=== PATIENT | male | born 1965 | race Caucasian/White ===

== ENCOUNTER → 2022-04-06 10:50 | Outpatient (CLI) | payer OTHER, SELFPAY ==
[2022-04-06 13:36] LABS: COVID19 -Nasal RAPID Negative (Negative)
== END ==
PROVIDERS: PCP Family Medicine; Visit Provider Surgery
DX: Z01.812 Encounter for preprocedural laboratory examination (principal); Z20.822 Contact with and (suspected) exposure to COVID-19
CPT/HCPCS: 87635; C9803

== ENCOUNTER 2022-04-07 10:48 | Day surgery (SDC) | payer OTHER, SELFPAY ==
--- NOTE | 2022-04-07 | PATH_ITS ---
[facility] Accession Number: [id number] . 01 Material submitted: . PART A: colon - ASCENDING COLON POLYP PART B: colon - TRANSVERSE COLON POLYP . 01 Clinical history: . [facility] FOR MALIGNANT NEOPLASM . 01 Diagnosis: A. Ascending Colon, Polyp, Biopsy: Sessile serrated adenoma. . B. Transverse Colon, Polyp, Biopsy: Sessile serrated adenoma. MRV 04/13/2022 1328 Local . 01 Electronically signed: . Daniela Fermin MD, Pathologist NPI- [id number] . 01 Gross description: . Part A: ASCENDING COLON POLYP: Received in formalin are 2 fragment(s) of rahman, soft tissue measuring 0.3 x 0.2 x 0.2 cm to 0.3 x 0.2 x 0.2 cm submitted entirely in 1 cassette(s) Part B: TRANSVERSE COLON POLYP: Received in formalin is 1 fragment(s) of rahman, soft tissue measuring 1.0 x 0.3 x 0.2 cm submitted entirely in 1 cassette(s) /CPE 04/08/2022 0624 Local . 01 Pathologist provided ICD-10: D12.2, D12.3 . 01 CPT . 093846, 072513 Specimen Comment: A courtesy copy of this report has been sent to [phone] Performed at: 01 [facility] [address] [place] [address], [place], [place] [id number] MD Jeremy Joe MD Phone: [phone]
[2022-04-07 11:17] VITALS: BP 117/84; PULSE 78; RESP 20; TEMP 36.4; O2SAT 100
[2022-04-07] MEDS: LACTATED RINGERS 1,000 ML 84 ML IV (11:17)
[2022-04-07 11:18] VITALS: BMI 25.0
--- NOTE | 2022-04-07 11:43 | PM.HP.1 ---
History of Present Illness History of Present Illness Date Patient Seen: 04/07/22 Time Patient Seen: 11:43 Chief complaint: SD Narrative: Cole is a 57-year-old man who had a colonoscopy about 5 years ago at [facility]. He was told he had polyps and was instructed to have his next colonoscopy 2 years after that but he did not follow up because of the pandemic. Has no known family history of colon cancer. Patient History Family & Social History Social History: household members spouse Tobacco & Substance use: Smoking Status Current every day smoker Smoking packs per day 1 alcohol intake current alcohol intake frequency other Substance Use Type does not use Meds Home Medications and Allergies Home Medications Medication Instructions Recorded Confirmed Type aspirin 81 mg DAILY 04/07/22 04/07/22 History cyclobenzaprine 10 mg tablet 10 tab DAILY 04/07/22 04/07/22 History latanoprost 0.005 % eye drops 1 drp DAILY 04/07/22 04/07/22 History losartan 25 mg tablet 1 tab 2XD 04/07/22 04/07/22 History multivitamin 1 tab DAILY 04/07/22 04/07/22 History propranolol 120 mg capsule,24 1 cap PO DAILY 04/07/22 04/07/22 History hr,extended release Allergies Allergy/AdvReac Type Severity Reaction Status Date / Time cephalexin Allergy Severe Anaphylaxis Verified 04/07/22 11:11 Sulfa (Sulfonamide Allergy Intermediate Rash Verified 04/07/22 11:11 Antibiotics) amoxicillin Allergy Unknown ITCHING Verified 04/07/22 11:11 Exam Vital Signs (past 8 hours): - 04/07/22 11:17 Temperature 97.6 F Pulse Rate 78 Respiratory Rate 20 Blood Pressure 117/84 Pulse Oximetry 100 Oxygen Delivery Method Room Air Oxygen Delivery Method Room Air Const General: healthy appearing Resp Effort & Inspection: normal respiratory effort Assessment & Plan Assessment and plan (1) History of colon polyps: Status: Acute Plan We reviewed the risks and benefits of colonoscopy with sedation and he would like to proceed. Time Spent With Patient Critical Care time: I spent a total of [] minutes of critical care time on this patient's care today; this time is exclusive of procedural time.
[2022-04-07] MEDS: fentaNYL 250 MCG/5 ML INJ 150 MCG IV (13:15)
[2022-04-07] MEDS: MIDAZOLAM 5 MG/5 ML VIAL 9 MG IV (13:15)
--- NOTE | 2022-04-07 13:16 | PM.OP.COLON ---
Operative Date/Time/Diagnoses Date of procedure: 04/07/22 Time of procedure: 13:17 Pre-op diagnosis: History of polyps Post-op diagnosis: same Procedure & Clinicians Study performed: Colonoscopy Same procedure as scheduled: Yes Surgeon: Blu Meadows Procedure Notes Procedure in detail: Surgeon: Blu Meadows MD Procedure: The patient was brought to the endoscopy suite, placed in left lateral decubitus position. The patient was connected to monitoring devices. A time-out was performed. Sedation was administered. Once the patient was adequately sedated, a digital rectal exam was performed and was normal. The scope was then inserted and advanced to the cecum where the appendiceal orifice was identified and photographed. The scope was then slowly withdrawn over greater than 6 minutes. The mucosa was thoroughly inspected. There was a 5 mm polyp in the ascending colon removed with Jumbo forceps. There was a 8 mm polyp in proximal transverse colon removed with cold snare. The scope was retroflexed in the rectum. There were no abnormalities noted. The scope was straightened and removed. The patient was awakened and brought to recovery. Versed: 9 mg Fentanyl: 150 mcg EBL: 5 mL Findings: 8 mm polyp in proximal transverse colon and 5 mm polyp in the ascending colon. Scope withdrawal time: 14 Sedation minutes: 38 Post-procedure Recommendations: Will call with biopsy results Disposition: PACU
[2022-04-07 13:21] VITALS: BP 115/85; PULSE 83; RESP 20; TEMP 36.8; O2SAT 98
[2022-04-07 13:26] VITALS: BP 98/48; PULSE 86; RESP 16; O2SAT 98
[2022-04-07 13:39] VITALS: BP 120/70; PULSE 78; RESP 16; TEMP 36.8; O2SAT 98
== END 2022-04-07 13:50 | disposition home or self-care (01) ==
PROVIDERS: PCP Family Medicine; Referring Provider Surgery; Visit Provider Surgery
PROC: 0DJD8ZZ Inspection of Lower Intestinal Tract, Via Natural or Artificial Opening Endoscopic (ICD-10-PCS; CPT 45378; principal; 2022-04-07 11:45)
DX: Z12.11 Encounter for screening for malignant neoplasm of colon (principal); Z86.010 Personal history of colon polyps; F17.210 Nicotine dependence, cigarettes, uncomplicated; D12.2 Benign neoplasm of ascending colon; D12.3 Benign neoplasm of transverse colon
CPT/HCPCS: 45385; 45380; 99152; 99153; J2250; J3010

== ENCOUNTER 2025-04-16 10:08 | Emergency (ER) | payer OTHER, SELFPAY ==
[2025-04-16] VITALS (14 sets, daily range): BP systolic 113–139; BP diastolic 63–81; PULSE 60–79; RESP 14; TEMP 36.1; O2SAT 94–100
--- NOTE | 2025-04-16 | DI.RAD.S_ITS ---
PROCEDURE: XR CHEST 1V INDICATIONS: fall hit head TECHNIQUE: One view of the chest was acquired. COMPARISON: None. FINDINGS: Surgical changes and devices: Sternotomy wires and prosthetic heart valve are present. Lungs and pleura: Lungs are clear. No pleural effusions or pneumothorax. Mediastinum: Mediastinal contours appear normal. Heart size is normal. Bones and chest wall: No definite displaced rib fracture. No suspicious bony lesions. Overlying soft tissues appear unremarkable. IMPRESSION: No acute cardiopulmonary abnormality is seen. Approved by: Alcon Curz M.D. on 04/16/2025 at 11:21
--- NOTE | 2025-04-16 10:35 | DI.CT.S_ITS ---
PROCEDURE: CT HEAD/BRAIN WO CON INDICATIONS: fall on coumadin TECHNIQUE: Noncontrast 4.5 mm thick angled axial sections acquired from the foramen magnum to the vertex, with coronal and sagittal reformats. For radiation dose reduction, the following was used: automated exposure control, adjustment of mA and/or kV according to patient size. COMPARISON: None. FINDINGS: Image quality: Diagnostic. CSF spaces: Basal cisterns are patent. No extra-axial fluid collections. The ventricles are symmetric in size and shape. Brain: No acute intracranial hemorrhage or mass effect. There is cerebral volume loss, with resultant ventricular and sulcal prominence. There are periventricular and deep white matter chronic small vessel ischemic changes. There is intracranial internal carotid artery atherosclerosis. Skull and face: Calvarium and visualized facial bones appear intact, without suspicious lesions. Sinuses: Mild mucosal thickening in the maxillary sinuses. Visualized sinuses and mastoids are otherwise clear. IMPRESSION: No acute intracranial pathology. Approved by: Alcon Cruz M.D. on 04/16/2025 at 11:10
--- NOTE | 2025-04-16 10:44 | EKG_ITS ---
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
--- NOTE | 2025-04-16 10:44 | PC.NURSE ---
reports syncopal episode in bathroom today after seeing [facility] this morning and having his INR checked which was 2.4. takes warfarin for valve replacement. reports LOC maybe a second or two and hit head on little dresser inside bathroom. 2cm LAC to top L of head above forehead. AAOx3. ambulatory. No focal deficits. denies pain. wound irrigated for potential staple placement.
[2025-04-16] MEDS: TET,DIPH,PERTUSS(ACELL),VAC/PF 0.5 ML SYRINGE IM (10:49)
--- NOTE | 2025-04-16 11:13 | DI.RAD.S_ITS ---
PROCEDURE: XR CHEST 1V INDICATIONS: Chest Pain TECHNIQUE: One view of the chest was acquired. COMPARISON: [facility], CR, XR CHEST 1V, 04/16/2025, 10:22. FINDINGS: Surgical changes and devices: Sternotomy wires and prosthetic heart valve are present. Lungs and pleura: Lungs are clear. No pleural effusions or pneumothorax. Mediastinum: Mediastinal contours appear normal. Heart size is normal. Bones and chest wall: No suspicious bony lesions. Overlying soft tissues appear unremarkable. IMPRESSION: No acute cardiopulmonary abnormality is seen. No significant interval change. Approved by: Alcon Cruz M.D. on 04/16/2025 at 11:41
[2025-04-16 11:21] LABS: Add Manual Diff / Slide Review NO; Hematocrit 46.6 % (41-53); Hemoglobin 15.8 g/dL (13.5-17.5); Lymphocytes Absolute Auto 1200 /uL (1100-4500); Mean Corpuscular HGB Conc 34.0 % (30-36); Mean Corpuscular Hemoglobin 32.5 PG (26-34); Mean Corpuscular Volume 95.6 fL (80-100); Platelet Count 173 X10^3/uL (150-400)
--- NOTE | 2025-04-16 11:21 | ED.DIZZY ---
HPI - Dizziness General Chief Complaint: Syncope Stated Complaint: Blood Pressure Loss, Fell, Stitches Time Seen by Provider: 04/16/25 10:09 Source: patient Mode of arrival: Ambulatory History of Present Illness HPI Narrative: 60-year-old gentleman history of valve replacement on Coumadin fell today as he got dizzy and lightheaded hitting his head against dresser with + LOC. Patient has a headache right now but denies dizziness, chest pain, blurred vision, difficulty speaking, swallowing, weakness in the arms and legs, shortness of breath, dyspnea on exertion. Other than what is stated 14 point review of system is negative. Related Data Home Medications ?Medication ?Instructions ?Recorded ?Confirmed aspirin 81 mg DAILY 04/07/22 04/07/22 cyclobenzaprine 10 mg tablet 10 tab DAILY 04/07/22 04/07/22 latanoprost 0.005 % eye drops 1 drp DAILY 04/07/22 04/07/22 losartan 25 mg tablet 1 tab 2XD 04/07/22 04/07/22 multivitamin 1 tab DAILY 04/07/22 04/07/22 propranolol 120 mg capsule,24 1 cap PO DAILY 04/07/22 04/07/22 hr,extended release Allergies Allergy/AdvReac Type Severity Reaction Status Date / Time cephalexin Allergy Severe Anaphylaxis Verified 04/16/25 10:22 Sulfa (Sulfonamide Allergy Intermediate Rash Verified 04/16/25 10:22 Antibiotics) amoxicillin Allergy Unknown ITCHING Verified 04/16/25 10:22 Review of Systems Review of Systems ROS Unobtainable: All systems reviewed & are unremarkable except as noted in HPI and below Patient History Social History household members: spouse Smoking Status: Unknown if ever smoked alcohol intake: current Smoking Status: Unknown if ever smoked alcohol intake frequency: other Exam Narrative Exam Narrative: GENERAL: [60] year old patient appears stated age. Well-developed patient, in mild distress. HEAD: Atraumatic. Normocephalic. EYES: Pupils equal round and reactive. Extraocular motions intact. No scleral icterus. No injection or drainage. ENT: Nose without bleeding, purulent drainage. Throat without erythema, tonsillar hypertrophy or exudate. Airway patent. NECK: Trachea midline. Non tender CARDIOVASCULAR: Regular rate and rhythm without murmurs, gallops, or rubs. RESPIRATORY: Clear to auscultation. Breath sounds equal bilaterally. No wheezes, rales, or rhonchi. GASTROINTESTINAL: Abdomen soft, non-tender, nondistended. EXTREMITIES: No edema or joint tenderness. BACK: Nontender without deformity or crepitance. No flank tenderness. NEURO: AOx3. GCS 15 nonfocal neuro exam 5/5 upper and lower extremity a pronator drift, [id number] opposite ozxa-mm-[id number] rapid alternating movement all intact SKIN: No rash or erythema of visible areas Initial Vital Signs Initial Vital Signs: Vital Signs Temperature 97.0 F L 04/16/25 10:22 Pulse Rate 69 04/16/25 10:22 Respiratory Rate 14 04/16/25 10:22 Blood Pressure 129/81 04/16/25 10:22 Pulse Oximetry 98 04/16/25 10:22 Oxygen Delivery Method Room Air 04/16/25 10:22 Procedures Laceration Repair Laceration 1: Time of procedure: 11:40 Site: scalp Size (cm): 3.0 Description: linear Depth: simple, single layer Local Anesthetic: lidocaine 1% and with epi Amount of anesthesia used (mL): 2 Number of sutures: 2 Course Orders Ordered: ED Orders 04/16/25 10:30 Complete Blood Count AUTO DIFF Stat Comprehensive Metabolic Panel Stat Lipase Stat Magnesium Stat NT-proBNP (BNP-Adult 18+) Stat PTT Partial Thromboplastin [place] Stat Prothrombin Time INR Stat Troponin & CK Cardiac Panel Stat 04/16/25 10:35 CT head/brain wo con Stat 04/16/25 11:13 XR chest 1V Stat EKG-12 Lead Stat 04/16/25 12:20 CT abdomen pelvis w con Stat Discontinued Medications Diphtheria/Tetanus/Acell Pertussis (Tet,Diph,Pertuss(Acell),Vac/Pf 0.5 Ml Syringe) 0.5 ml IM .ONCE ONE Stop: 04/16/25 10:47 Last Admin: 04/16/25 10:49 Dose: 0.5 ml Documented By: CTS Sodium Chloride (Normal Saline 0.9%) 1,000 mls @ 1,000 mls/hr IV BOLUS ONE Stop: 04/16/25 13:07 Last Infusion: 04/16/25 14:20 Dose: Infused Documented By: DKSkye Admin: 04/16/25 12:09 Dose: 1,000 mls/hr Documented By: CTS Lidocaine/Epinephrine (Lidocaine 1% W/Epi 10ml) 4 ml INJ INTRA-OP ONE Stop: 04/16/25 11:33 Last Admin: 04/16/25 11:39 Dose: 4 ml Documented By: ADDIE Vital Signs Vital signs: Vital Signs - 8 hr 04/16/25 10:22 04/16/25 10:48 04/16/25 10:48 Temperature 97.0 F L Pulse Rate 69 66 Pulse Rate [Orthostatic Lying] Pulse Rate [Orthostatic Sitting] Pulse Rate [Orthostatic Standing] Respiratory Rate 14 Blood Pressure 129/81 128/69 Blood Pressure [Orthostatic Lying] Blood Pressure [Orthostatic Sitting] Blood Pressure [Orthostatic Standing] Pulse Oximetry 98 98 Oxygen Delivery Method Room Air 04/16/25 11:00 04/16/25 11:00 04/16/25 11:30 Temperature Pulse Rate 68 66 Pulse Rate [Orthostatic Lying] Pulse Rate [Orthostatic Sitting] Pulse Rate [Orthostatic Standing] Respiratory Rate 14 Blood Pressure 116/67 Blood Pressure [Orthostatic Lying] Blood Pressure [Orthostatic Sitting] Blood Pressure [Orthostatic Standing] Pulse Oximetry 95 94 Oxygen Delivery Method 04/16/25 11:30 04/16/25 11:58 04/16/25 11:58 Temperature Pulse Rate 62 Pulse Rate [Orthostatic Lying] Pulse Rate [Orthostatic Sitting] Pulse Rate [Orthostatic Standing] Respiratory Rate Blood Pressure 117/67 120/71 Blood Pressure [Orthostatic Lying] Blood Pressure [Orthostatic Sitting] Blood Pressure [Orthostatic Standing] Pulse Oximetry 97 Oxygen Delivery Method 04/16/25 12:00 04/16/25 12:00 04/16/25 12:01 Temperature Pulse Rate 66 79 Pulse Rate [Orthostatic Lying] Pulse Rate [Orthostatic Sitting] Pulse Rate [Orthostatic Standing] Respiratory Rate Blood Pressure 139/75 Blood Pressure [Orthostatic Lying] Blood Pressure [Orthostatic Sitting] Blood Pressure [Orthostatic Standing] Pulse Oximetry 98 98 Oxygen Delivery Method 04/16/25 12:01 04/16/25 12:02 04/16/25 12:02 Temperature Pulse Rate 65 Pulse Rate [Orthostatic Lying] 63 Pulse Rate [Orthostatic Sitting] 68 Pulse Rate [Orthostatic Standing] 78 Respiratory Rate Blood Pressure 132/73 Blood Pressure [Orthostatic Lying] 120/71 Blood Pressure [Orthostatic Sitting] 139/75 Blood Pressure [Orthostatic Standing] 132/73 Pulse Oximetry 99 Oxygen Delivery Method 04/16/25 12:02 04/16/25 12:31 04/16/25 12:31 Temperature Pulse Rate 62 Pulse Rate [Orthostatic Lying] Pulse Rate [Orthostatic Sitting] Pulse Rate [Orthostatic Standing] Respiratory Rate Blood Pressure 130/65 132/63 Blood Pressure [Orthostatic Lying] Blood Pressure [Orthostatic Sitting] Blood Pressure [Orthostatic Standing] Pulse Oximetry 99 Oxygen Delivery Method MDM - Dizziness Lab Data 04/16/25 10:30 04/16/25 10:30 Labs: Lab Results 04/16/25 Range/Units 10:30 WBC 11.4 H (4.5-11.0) X10^3/uL RBC 4.87 (4.5-5.9) X10^6/uL Hgb 15.8 (13.5-17.5) g/dL Hct 46.6 (41-53) % MCV 95.6 (80-100) fL MCH 32.5 (26-34) PG MCHC 34.0 (30-36) % RDW 13.4 (11.6-14.8) % Plt Count 173 (150-400) X10^3/uL Neut % (Auto) 81.3 H (50-75) % Lymph % (Auto) 10.8 L (25-40) % Braxton % (Auto) 7.3 (3-14) % Eos % (Auto) 0.3 L (2-4) % Baso % (Auto) 0.3 (0-2) % Neut # (Auto) 9200 H (9004-9228) /uL Lymph # (Auto) 1200 (2426-1991) /uL Braxton # (Auto) 800 (0-900) /uL Eos # (Auto) 0 (0-450) /uL Baso # (Auto) 0 (0-100) /uL PT 27.6 H (9.4-12.5) SECONDS INR 2.5 H (0.9-1.3) APTT 33 (25.1-36.5) SECONDS Sodium 137 (137-145) mmol/L Potassium 4.2 (3.4-5.1) mmol/L Chloride 103 (98-107) mmol/L Carbon Dioxide 25 (22-32) mmol/L BUN 11 (9-20) mg/dL Creatinine 0.89 (0.66-1.25) mg/dL Estimated GFR > 60 (>60) mL/min BUN/Creatinine Ratio 12.4 (6-22) Glucose 116 H (70-99) mg/dL Calcium 9.6 (8.4-10.2) mg/dL Magnesium 1.9 (1.6-2.3) mg/dL Total Bilirubin 0.9 (0.2-1.3) mg/dL AST 67 H (17-59) IU/L ALT 69 H (<50) IU/L Alkaline Phosphatase 55 (38-126) U/L Total Creatine Kinase 141 (55-170) U/L Troponin I < 0.012 (0.01-0.034) ng/mL NT-Pro-B Natriuret Pep 67 (<125) pg/mL Total Protein 7.8 (6.3-8.2) g/dL Albumin 5.0 (3.5-5.0) g/dL Globulin 2.8 (1.7-4.1) g/dL Albumin/Globulin Ratio 1.8 (1.0-2.8) Lipase 942 H (23-300) U/L Imaging Data CT scan - head: Radiologist's Impression: [place] [address] CT Scan Report Signed Patient: Cole Collado MR#: [id number] : 1965 Acct:[id number] Age/Sex: 60 / M Date of Service: 04/16/25 Loc: ED Accession Number: [id number] Procedure: CT head/brain wo con Ordering Provider: Ahmet Galindo D.O. PROCEDURE: CT HEAD/BRAIN WO CON INDICATIONS: fall on coumadin TECHNIQUE: Noncontrast 4.5 mm thick angled axial sections acquired from the foramen magnum to the vertex, with coronal and sagittal reformats. For radiation dose reduction, the following was used: automated exposure control, adjustment of mA and/or kV according to patient size. COMPARISON: None. FINDINGS: Image quality: Diagnostic. CSF spaces: Basal cisterns are patent. No extra-axial fluid collections. The ventricles are symmetric in size and shape. Brain: No acute intracranial hemorrhage or mass effect. There is cerebral volume loss, with resultant ventricular and sulcal prominence. There are periventricular and deep white matter chronic small vessel ischemic changes. There is intracranial internal carotid artery atherosclerosis. Skull and face: Calvarium and visualized facial bones appear intact, without suspicious lesions. Sinuses: Mild mucosal thickening in the maxillary sinuses. Visualized sinuses and mastoids are otherwise clear. IMPRESSION: No acute intracranial pathology. CT scan - abdomen/pelvis: Radiologist's Impression: [address] [address] [address] Scan Report Signed Patient: Cole Collado MR#: [id number] : 1965 Acct:[id number] Age/Sex: 60 / M Date of Service: 04/16/25 Loc: ED Accession Number: [id number] Procedure: CT abdomen pelvis w con Ordering Provider: Ahmet Galindo D.O. PROCEDURE: CT ABDOMEN PELVIS W CON INDICATIONS: elevated lipase TECHNIQUE: After the administration of intravenous contrast, axial sections acquired from the lung bases to the pubic symphysis. Coronal and sagittal reformats were performed. For radiation dose reduction, the following was used: automated exposure control, adjustment of mA and/or kV according to patient size. COMPARISON: None. FINDINGS: Image quality: Diagnostic. Lower Chest: No significant findings. ABDOMEN: Liver: No solid mass. Gallbladder: No radiopaque gallstones or wall thickening. Biliary ducts: No biliary dilation. Pancreas: No ductal dilation. Spleen: Size is within normal limits. Adrenal Glands: No adrenal nodules. Kidneys and Ureters: No hydronephrosis. No solid mass. No complex renal cystic lesion which requires follow up. Stomach and Bowel: Normal appendix. Moderate colonic stool. Small bowel loops are nondilated. Peritoneum: No abnormal intraperitoneal fluid. No free air. Ventral Wall: No significant ventral hernia. Abdominal Nodes: No retroperitoneal or mesenteric adenopathy by size criteria. Vessels: Aorta and inferior vena cava are normal in size. PELVIS: Pelvic Organs: Unremarkable. Bladder: No bladder wall thickening, accounting for underdistention. Pelvic Nodes: No enlarged lymph nodes. Miscellaneous: No inguinal hernias are seen. Bones: No aggressive osseous abnormality. IMPRESSION: No acute abnormality identified in the abdomen or pelvis. No significant peripancreatic edema or ductal dilatation. Pancreas enhances normally. MDM Narrative Medical decision making narrative: All lab work, vital signs, nurse triage note, medication list, previous ER visits, and all imaging studies reviewed. CT head and chest X showed no acute process. CT abdomen and pelvis showed no acute process either including no significant peripancreatic edema or ductal dilatation. WBC 11.4 INR 2.5 glucose 116 troponin normal BNP 66 lipase 942. Differential diagnosis includes subarachnoid epidural subdural hemorrhage pneumothorax or fracture pancreatitis orthostatic hypotension. Patient given 1 L of fluids here. Discharge Plan Departure Patient Disposition: Home Clinical Impression: Orthostatic hypotension Laceration of scalp Qualifiers: Encounter type: initial encounter Qualified Code(s): S01.01XA - Laceration without foreign body of scalp, initial encounter Instructions: DI for Orthostatic Hypotension Activity Restrictions/Additional Instructions: Return with new or worsening symptoms. Keep hydrated. Follow up with PCP in 7-10 days for staple removal. Prescriptions: No Action cyclobenzaprine 10 mg tablet 10 tab DAILY Patient Comments: TAKE 1 TABLET BY MOUTH EVERY EVENING latanoprost 0.005 % drops 1 drp DAILY losartan 25 mg tablet 1 tab 2XD propranolol 120 mg capsule,extended release 24 hr 1 cap PO DAILY aspirin 81 mg DAILY multivitamin 1 tab DAILY Referrals: Jose Mccoy MD [Primary Care Provider, Medical] Stand Alone Forms: Patient Portal/API
[2025-04-16 11:24] LABS: INR 2.5 (0.9-1.3); Prothrombin Time 27.6 SECONDS (9.4-12.5)
[2025-04-16 11:27] LABS: PTT Partial Thromboplastin Tim 33 SECONDS (25.1-36.5)
[2025-04-16] MEDS: LIDOCAINE 1% W/EPI 10ML 4 ML INJ (11:39)
[2025-04-16 12:06] LABS: Alanine Aminotransferase 69 IU/L (<50); Albumin 5.0 g/dL (3.5-5.0); Albumin Globulin Ratio 1.8 (1.0-2.8); Alkaline Phosphatase 55 U/L (38-126); Blood Urea Nitrogen 11 mg/dL (9-20); Calcium 9.6 mg/dL (8.4-10.2); Carbon Dioxide 25 mmol/L (22-32); Chloride 103 mmol/L (98-107); Creatine Kinase 141 U/L (55-170); Estimated Glomerular Filt Rate > 60 mL/min (>60); Globulin 2.8 g/dL (1.7-4.1); Glucose 116 mg/dL (70-99); HEMOLYSIS 41 (0-50); Lipase 942 U/L (23-300); Magnesium 1.9 mg/dL (1.6-2.3); Potassium 4.2 mmol/L (3.4-5.1); Sodium 137 mmol/L (137-145); Total Protein 7.8 g/dL (6.3-8.2)
[2025-04-16] MEDS: SODIUM CHLORIDE 0.9% 1,000 ML 1000 ML IV (12:09)
[2025-04-16 12:19] LABS: NT-proBNP (BNP-Adult 18+) 67 pg/mL (<125); Troponin I < 0.012 ng/mL (0.01-0.034)
--- NOTE | 2025-04-16 12:20 | DI.CT.S_ITS ---
PROCEDURE: CT ABDOMEN PELVIS W CON INDICATIONS: elevated lipase TECHNIQUE: After the administration of intravenous contrast, axial sections acquired from the lung bases to the pubic symphysis. Coronal and sagittal reformats were performed. For radiation dose reduction, the following was used: automated exposure control, adjustment of mA and/or kV according to patient size. COMPARISON: None. FINDINGS: Image quality: Diagnostic. Lower Chest: No significant findings. ABDOMEN: Liver: No solid mass. Gallbladder: No radiopaque gallstones or wall thickening. Biliary ducts: No biliary dilation. Pancreas: No ductal dilation. Spleen: Size is within normal limits. Adrenal Glands: No adrenal nodules. Kidneys and Ureters: No hydronephrosis. No solid mass. No complex renal cystic lesion which requires follow up. Stomach and Bowel: Normal appendix. Moderate colonic stool. Small bowel loops are nondilated. Peritoneum: No abnormal intraperitoneal fluid. No free air. Ventral Wall: No significant ventral hernia. Abdominal Nodes: No retroperitoneal or mesenteric adenopathy by size criteria. Vessels: Aorta and inferior vena cava are normal in size. PELVIS: Pelvic Organs: Unremarkable. Bladder: No bladder wall thickening, accounting for underdistention. Pelvic Nodes: No enlarged lymph nodes. Miscellaneous: No inguinal hernias are seen. Bones: No aggressive osseous abnormality. IMPRESSION: No acute abnormality identified in the abdomen or pelvis. No significant peripancreatic edema or ductal dilatation. Pancreas enhances normally. Approved by: Alcon Cruz M.D. on 04/16/2025 at 13:32
== END 2025-04-16 14:39 | disposition home or self-care (01) ==
PROVIDERS: Emergency Provider Family Medicine; PCP Family Medicine
DX: I95.1 Orthostatic hypotension (principal); S01.01XA Laceration without foreign body of scalp, initial encounter; R51.9 Headache, unspecified; R42 Dizziness and giddiness; Z95.2 Presence of prosthetic heart valve; Z79.01 Long term (current) use of anticoagulants; W18.09XA Striking against other object with subsequent fall, initial encounter
CPT/HCPCS: 12002; 36415; 70450; 71045; 74177; 80053; 82550; 83690; 83735; 83880; 84484; 85025; 85610; 85730; 90471; 93005; 93010; 96360; 96361; 99285; 90715; Q9967